=== PATIENT | male | born 1945 | race Caucasian/White ===

== ENCOUNTER 2023-08-07 19:50 | Inpatient (IN) | payer MEDICARE ==
[~2023-08-07] VITALS: Ht 175.3 cm; Wt 94.8 kg
[2023-08-07 20:43] LABS: BASOPHILS ABSOLUTE AUTO 0.06 K/mm3 (0.00-0.23); BASOPHILS PERCENT AUTO 1 % (0-2); EOSINOPHILS ABSOLUTE AUTO 0.46 K/mm3 (0.00-0.68); EOSINOPHILS PERCENT AUTO 5 % (0-6); Hematocrit 45.1 % (37.0-53.0); Hemoglobin 15.7 g/dL (13.5-17.5); IMMATURE GRAN ABSOLUTE AUTO 0.04 K/mm3 (0.00-0.10); IMMATURE GRAN PERCENT AUTO 0 % (0-1); LYMPHOCYTES PERCENT AUTO 17 % (21-46); MONOCYTES ABSOLUTE AUTO 0.65 K/mm3 (0.16-1.47); MONOCYTES PERCENT AUTO 7 % (4-13); Mean Corpuscular HGB 30.3 pg (26.0-34.0); Mean Corpuscular HGB Conc 34.8 g/dL (31.5-36.5); Mean Corpuscular Volume 87 fL (80-100); NEUTROPHILS ABSOLUTE AUTO 6.25 K/mm3 (1.96-9.15); NEUTROPHILS PERCENT AUTO 70 % (41-73); RDW Coefficient Variation 12.6 % (11.7-14.2); RDW Standard Deviation 39.8 fL (35.1-46.3); Red Blood Cell Count 5.19 M/mm3 (4.30-5.90); White Blood Cell Count 8.96 K/mm3 (4.00-11.30)
[2023-08-07 20:46] LABS: Platelet Count 235 K/mm3 (150-400)
[2023-08-07 21:03] LABS: Albumin, Blood 3.8 g/dL (3.4-5.0); Albumin/Globulin Ratio 1.1 (0.8-1.8); Bilirubin, Total 1.4 mg/dL (0.1-1.0); Bun/Creatinine Ratio 17.4 (12.0-20.0); Calcium, Blood 8.9 mg/dL (8.5-10.1); Creatinine, Blood 1.38 mg/dL (0.60-1.20); Globulin, Blood 3.6 g/dL (2.2-4.0); Potassium, Blood 4.7 mmol/L (3.5-5.5); Total Protein, Blood 7.4 g/dL (6.4-8.2)
[2023-08-08] VITALS (13 sets, daily range): BP systolic 134–185; BP diastolic 63–90
[2023-08-08 02:19] LABS: Anti-Xa UFH, PHA Monitoring <0.10 IU/mL; International Normalized Ratio 1.06; Prothrombin Time Results 11.1 Sec (9.7-11.5)
[2023-08-08 05:13] LABS: BASOPHILS ABSOLUTE AUTO 0.07 K/mm3 (0.00-0.23); BASOPHILS PERCENT AUTO 1 % (0-2); EOSINOPHILS ABSOLUTE AUTO 0.68 K/mm3 (0.00-0.68); EOSINOPHILS PERCENT AUTO 9 % (0-6); Hematocrit 43.5 % (37.0-53.0); IMMATURE GRAN ABSOLUTE AUTO 0.05 K/mm3 (0.00-0.10); IMMATURE GRAN PERCENT AUTO 1 % (0-1); LYMPHOCYTES ABSOLUTE AUTO 1.94 K/mm3 (0.84-5.20); LYMPHOCYTES PERCENT AUTO 25 % (21-46); MONOCYTES PERCENT AUTO 9 % (4-13); Mean Corpuscular HGB 30.2 pg (26.0-34.0); Mean Corpuscular HGB Conc 34.5 g/dL (31.5-36.5); Mean Corpuscular Volume 88 fL (80-100); NEUTROPHILS ABSOLUTE AUTO 4.23 K/mm3 (1.96-9.15); NEUTROPHILS PERCENT AUTO 55 % (41-73); Platelet Count 207 K/mm3 (150-400); RDW Coefficient Variation 12.9 % (11.7-14.2); RDW Standard Deviation 41.2 fL (35.1-46.3); Red Blood Cell Count 4.96 M/mm3 (4.30-5.90); White Blood Cell Count 7.67 K/mm3 (4.00-11.30)
[2023-08-08 05:16] LABS: Albumin, Blood 3.6 g/dL (3.4-5.0); Bilirubin, Total 1.4 mg/dL (0.1-1.0); Bun/Creatinine Ratio 17.2 (12.0-20.0); Creatinine, Blood 1.28 mg/dL (0.60-1.20); Globulin, Blood 3.5 g/dL (2.2-4.0); Potassium, Blood 4.1 mmol/L (3.5-5.5); Total Protein, Blood 7.1 g/dL (6.4-8.2)
--- NOTE | 2023-08-08 07:40 | NUR ---
DR MORRISSEY AT BEDSIDE TO EVMIREYA PT. NO CHANGES TO ORDERS AT THIS TIME. GIVE PRN HYDRALAZINE FOR SBP > 160 NEEDED. NO BETA ELIZABETH AT THIS TIME R/T BRADYCARDIA.
--- NOTE | 2023-08-08 07:58 | NUR ---
Echocardiogram completed.
--- NOTE | 2023-08-08 09:45 | NUR ---
REPORT RECEIVED FROM ABHINAV Gilmore RN. ASSUMED CARE OF THIS PT AT APPROX 0700.
--- NOTE | 2023-08-08 10:42 | NUR ---
DR IRENE AT BEDSIDE FOR CONSULTATION OF THIS PT. CONSENT FOR ANGIOGRAM HAS BEEN SIGNED. PROVIDER STS THE PT WILL NOT BE ABLE TO GO TO [employer] FOR PROCEDURE UNTIL INPATIENT BED IS AVAILABLE FOR RECOVERY. LAKHWINDER Carrera, [employer], HAS BEEN MADE AWARE BY THIS RN.
--- NOTE | 2023-08-08 12:05 | NUR ---
REPORT GIVEN TO KEYONA Bray RN TO ASSUME CARE. PT TRANSFERRED TO PCU-02 BY THIS RN AT APPROX 1200.
--- NOTE | 2023-08-08 15:22 | NUR ---
ADMIT TO PCU AT 1201. PATIENT ALERT AND ORIENTED X4. PATIENT STATES HE IS NERVOUS AND CAN BE FORGETFUL AT TIMES. STATES HE HAS BEEN TOLD IN THE PAST HE HAS "DEMENTIA". MOVING ALL EXTREMITIES EQUALLY. SBA TO BATHROOM TO HELP MANAGE CORDS. BILATERAL HYDROCHLORIC AREA [employer]. DENIES USING WALKER OR CANE AT BASELINE. TELE SHOWING SB WITH HR 40-60'S. BP ELEVATED ON ADMIT WITH SBP 170'S. COMPLAINS OF 6/10 MID STERNAL CHEST PAIN THAT IS NONRADIATING AND DULL IN NATURE. PO NITRO GIVEN X1. SBP 134 POST NITRO ADMINISTRATION. CHEST PAIN REDUCED TO 2/10. HEPARIN GTT INFUSING PER EMAR. STRONG PPP. NO EDEMA NOTED. [address] ANGIO SCHEDULED FOR THIS AFTERNOON. ON ROOM AIR SATING ABOVE 95%. LUNGS SOUNDING CLEAR AND DIM IN BASES. DENIES SOB/COUGH. EVEN AND UNLABORED RESPIRATIONS. DENIES USING OXYGEN OR CPAP/BIPAP AT HOME. BOWEL TONES PRESENT. PATIENT CURRENTLY NPO PENDING ANGIOGRAM. MISSING SOME TOP TEETH. PATIENT STATES HE PREFERS A VEGETARIAN DIET. BOWEL MOVEMENT UPON ADMIT TO PCU. PT REPORTS HISTORY OF PROSTATE CANCER WITH TEMPORARY SUPRAPUBIC CATH APPROX 10 YEARS AGO. NO CATH PRESENT ON ADMIT. PATIENT USING URINAL IN BED. SKIN OVERALL FRAGILE WITH SCATTERED BRUISING/SCABS. PATIENT STATES HE HAS A DOG AT HOME AND GETS OCCASIONAL BRUISES FROM PLAYING. SIG OTHER MALACHI AT BEDSIDE FOR ADMIT. PATIENT EDUCATED ON PCU UNIT, CALL LIGHT AND FALL PREVENTION. 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 THIS RN PLACED CALL TO [facility], WAITING ON HOME MED LIST TO BE FAXED FROM [facility].
[2023-08-08] MEDS ORDERED: HUMALOG KW100 UNIT/1 SC (17:23)
[2023-08-08] MEDS ORDERED: BENAZEPRIL HCL40 M4 PO (17:24)
[2023-08-08] MEDS ORDERED: BASAGLAR K100 UNIT/8 SC (17:24)
[2023-08-08] MEDS ORDERED: ATOR40TA PO (17:25)
[2023-08-08] MEDS ORDERED: SYMBICORT 16010.2 GM INH (17:25)
[2023-08-08] MEDS ORDERED: AMLODIPINE BESY10 MG PO (17:26)
[2023-08-08] MEDS ORDERED: HYDRA50 PO (17:27)
[2023-08-08] MEDS ORDERED: INSULANI SC (17:27)
[2023-08-08] MEDS ORDERED: METFORMIN HCL500 M2 PO (17:28)
[2023-08-08] MEDS ORDERED: FLUTICASONE PRO16 GM INH (17:28)
[2023-08-08] MEDS ORDERED: ATEN50 PO (17:28)
[2023-08-08] MEDS ORDERED: GLIP5ER PO (17:29)
--- NOTE | 2023-08-08 18:20 | NUR ---
PATIENT LEFT TO HEART CENTER AT THIS TIME. HEPARIN PLACED ON STANDBY, PHARMACY NOTIFIED. PATIENT SPOKE WITH SIG OTHER MALACHI PRIOR TO HEART CENTER TRANSPORT.
[2023-08-09] VITALS (49 sets, daily range): BP systolic 112–172; BP diastolic 52–93
[2023-08-09 04:13] LABS: BASOPHILS ABSOLUTE AUTO 0.05 K/mm3 (0.00-0.23); BASOPHILS PERCENT AUTO 0 % (0-2); EOSINOPHILS ABSOLUTE AUTO 0.05 K/mm3 (0.00-0.68); EOSINOPHILS PERCENT AUTO 0 % (0-6); Hematocrit 44.6 % (37.0-53.0); Hemoglobin 15.4 g/dL (13.5-17.5); IMMATURE GRAN ABSOLUTE AUTO 0.04 K/mm3 (0.00-0.10); IMMATURE GRAN PERCENT AUTO 0 % (0-1); LYMPHOCYTES ABSOLUTE AUTO 0.88 K/mm3 (0.84-5.20); LYMPHOCYTES PERCENT AUTO 7 % (21-46); MONOCYTES ABSOLUTE AUTO 0.49 K/mm3 (0.16-1.47); MONOCYTES PERCENT AUTO 4 % (4-13); Mean Corpuscular HGB 30.3 pg (26.0-34.0); Mean Corpuscular HGB Conc 34.5 g/dL (31.5-36.5); Mean Corpuscular Volume 88 fL (80-100); Mean Platelet Volume 11.7 fL (9.1-12.4); NEUTROPHILS ABSOLUTE AUTO 10.51 K/mm3 (1.96-9.15); NEUTROPHILS PERCENT AUTO 88 % (41-73); Platelet Count 234 K/mm3 (150-400); RDW Coefficient Variation 13.1 % (11.7-14.2); Red Blood Cell Count 5.08 M/mm3 (4.30-5.90); White Blood Cell Count 12.02 K/mm3 (4.00-11.30)
[2023-08-09 04:57] LABS: Bun/Creatinine Ratio 16.2 (12.0-20.0); Calcium, Blood 8.6 mg/dL (8.5-10.1); Creatinine, Blood 1.36 mg/dL (0.60-1.20); Potassium, Blood 4.3 mmol/L (3.5-5.5)
[2023-08-09 05:11] LABS: HEMOGLOBIN A1C 7.3 % (4.8-5.6)
--- NOTE | 2023-08-09 07:45 | NUR ---
DR. IRENE HERE TO SEE PATIENT. UPDATED ON PATIENT STATUS. INFORMED THAT PATIENT ON NICARDIPINE T/O NIGHT. INFORMED THAT SBP 1-TEENS TO 130S THROUGH NIGHT BASED ON DOCUMENTATION BUT IS 160S CURRENTLY. PATIENT STATES THAT HE NORMALLY RUNS 160S SYSTOLICALLY AT HOME. UPDATED ON GROIN AND RADIAL SITES. DR. IRENE ORDERED FOR TWO MORE PO MEDS FOR BP AND FOR ACTIVITY AD WOJCIECH.
--- NOTE | 2023-08-09 08:00 | NUR ---
INITIAL ASSESSMENT PATIENT ALERT AND ORIENTED X 4 THIS AM. PATIENT STATES THAT HE HAS BEEN DIAGNOSED WITH DEMENTIA AND THAT HE HAS A HARD TIME WITH MEMORY. PATIENT AFEBRILE. PATIENT DENIES PAIN. PATIENT SATTING 90% AND GREATER ON RA. LUNGS CLEAR THROUGHOUT. PATIENT IS COUGHING UP SMALL AMOUNT OF BLOODY SPUTUM THIS AM. PATIENT STATES THAT HE HAS A CHRONIC COUGH AND SPUTUM PRODUTION BUT THAT IT IS NORMALLY NOT BLOODY. PATIENT IN SR WITH BBB AND PVCS, HR IN THE 80S. SBP 130S TO 160S. PATIENT ON NICARDIPINE DRIP AT 2.5 MG/ HOUR. PATIENT STATES HE NORMALLY RUNS 160S AT HOME SYSTOLICALLY. GI AND WNL. SCATTERED BRUISES AND SCABS NOTED. TEGADERM APPLIED TO R RADIAL SITE. SMALL HEMATOMA AND BRUISE NOTED ABOVE INSERTION SITE. NO BLEEDING NOTED. NIGHT RN STATED THAT HEMATOMA HAS REMAINED UNCHANGED. R GROIN SITE SOFT TO PALPATION; NO BLEEDING, BRUISING, OR HEMATOMA NOTED. BED LOW, CALL LIGHT IN REACH. CARE CONTINUES.
--- NOTE | 2023-08-09 12:40 | NUR ---
PATIENT AFEBRILE. PATIENT REMAINS ALERT AND ORIENTED X 4. PATIENT DENIES PAIN. HR 70S TO 80S. SBP 1-TEENS TO 120S. BLOOD SUGAR 317; COVERAGE ADMINISTERED. NO OTHER ACUTE CHANGES TO NOTE ON AT THIS TIME. CARE CONTINUES.
[2023-08-09] MEDS ORDERED: OMEP20ER PO (15:44)
[2023-08-09] MEDS ORDERED: SYMBICORT 160-4.6 GM INH (15:44)
--- NOTE | 2023-08-09 15:50 | NUR ---
SHIFT SUMMARY PATIENT REMAINED ALERT AND ORIENTED X 4. PATIENT REMAINED CALM AND COOPERATIVE. PATIENT HAD NO COMPLAINTS OF PAIN THIS SHIFT. PATIENT REMAINED AFEBRILE. HR RANGED FROM 60S TO 80S. SBP 1-TEENS TO 160S. NICARDIPINE STOPPED THIS AM AND 2 NEW BP MEDS ADDED TO EMAR THIS AM. GI AND REMAIN WNL. NO CHANGES TO SKIN. R GROIN AND R RADIAL SITES REMAIN UNCHANGED EXCEPT FOR SLIGHT IMPROVEMENT/ DECREASE IN R RADIAL HEMATOMA ABOVE INSERTION SITE. IV SALINE LOCKED. PATIENT HAD COMPLETE BED BATH THIS SHIFT. BLOOD SUGARS 227 AND 317 THIS SHIFT; COVERAGE ADMINISTERED AFTER EACH CHECK. PATIENT S.O. HERE TO SEE HIM A COUPLE TIMES THIS SHIFT. NO COMPLAINTS AT THIS TIME. PATIENT WILL BE TRANSFERRING TO MEDICAL FLOOR SHORTLY.
--- NOTE | 2023-08-09 16:30 | NUR ---
PATIENT SUCCESSFULLY TRANSFERRED TO MEDICAL FLOOR, ROOM 305. ALL BELONGINGS SENT WITH PATIENT.
--- NOTE | 2023-08-09 19:41 | NUR ---
SUMMARY- PT TOLERATING FOOD AND FLUID. NO CHEST PAIN. R RADIAL SITE WITH OCCLUSIVE DRESSING SM BRUISING, NO SS OF BLEEDING. R GROIN WITH OCC DRESSING NO SS OF BLEEDING. VSS, 96% ROOM AIR. LUNGS CLEAR. REPORTED TO NOC RN
--- NOTE | 2023-08-09 19:44 | NUR ---
PT TRANSFERRED TO ROOM 305 FROM ICU 16. ORIENTED TO ROOM SET UP AND CALL LIGHT. S/P STENT PLACEMENT, 2 SITES APPEAR NORMAL WITH NO BLEEDING R RAD AND R GROIN. VSS, 96% ROOM AIR. DENIES CHEST PAIN.
[2023-08-10 04:21] VITALS: BP 136/69
[2023-08-10 05:10] LABS: BASOPHILS ABSOLUTE AUTO 0.07 K/mm3 (0.00-0.23); BASOPHILS PERCENT AUTO 1 % (0-2); EOSINOPHILS PERCENT AUTO 6 % (0-6); Hemoglobin 14.5 g/dL (13.5-17.5); IMMATURE GRAN ABSOLUTE AUTO 0.03 K/mm3 (0.00-0.10); IMMATURE GRAN PERCENT AUTO 0 % (0-1); LYMPHOCYTES ABSOLUTE AUTO 1.91 K/mm3 (0.84-5.20); LYMPHOCYTES PERCENT AUTO 18 % (21-46); MONOCYTES ABSOLUTE AUTO 0.87 K/mm3 (0.16-1.47); MONOCYTES PERCENT AUTO 8 % (4-13); Mean Corpuscular HGB 30.5 pg (26.0-34.0); Mean Corpuscular HGB Conc 34.5 g/dL (31.5-36.5); Mean Corpuscular Volume 88 fL (80-100); Mean Platelet Volume 12.3 fL (9.1-12.4); NEUTROPHILS ABSOLUTE AUTO 7.14 K/mm3 (1.96-9.15); NEUTROPHILS PERCENT AUTO 67 % (41-73); Platelet Count 182 K/mm3 (150-400); RDW Standard Deviation 42.4 fL (35.1-46.3); Red Blood Cell Count 4.75 M/mm3 (4.30-5.90); White Blood Cell Count 10.62 K/mm3 (4.00-11.30)
[2023-08-10 05:48] LABS: Bun/Creatinine Ratio 20.7 (12.0-20.0); Calcium, Blood 8.8 mg/dL (8.5-10.1); Creatinine, Blood 1.5 mg/dL (0.60-1.20)
[2023-08-10 07:47] VITALS: BP 132/72
[2023-08-10 12:23] VITALS: BP 140/77
[2023-08-10] MEDS ORDERED: PANT40 PO (13:18)
[2023-08-10] MEDS ORDERED: ASPI81CH PO (13:19)
[2023-08-10] MEDS ORDERED: CARV6.25 PO (13:19)
[2023-08-10] MEDS ORDERED: CLOP75 PO (13:19)
[2023-08-10] MEDS ORDERED: NITROGLYCERIN0.4 MG SL (13:20)
[2023-08-10] MEDS ORDERED: SPIR25 PO (13:20)
== END 2023-08-10 14:32 | disposition home or self-care (01) | DRG 322 ==
LOC: ER 19:50 → ERHOLD 08-08 01:31 → ICUE 08-08 01:31 → PCU 08-08 11:56 → ICUE 08-08 20:53 → MEDS 08-09 11:54 → ICUE 08-09 11:55 → MEDS 08-09 16:27 → ENPENDDIS 08-10 13:46 → MEDS 08-10 14:32
PROVIDERS: Emergency Medicine; Internal Medicine; ADMIT Internal Medicine
PROC: 027135Z Dilation of Coronary Artery, Two Arteries with Two Drug-eluting Intraluminal Devices, Percutaneous Approach (ICD-10-PCS; principal; 2023-08-08)
PROC: B2111ZZ Fluoroscopy of Multiple Coronary Arteries using Low Osmolar Contrast (ICD-10-PCS; 2023-08-08)
PROC: 4A023N7 Measurement of Cardiac Sampling and Pressure, Left Heart, Percutaneous Approach (ICD-10-PCS; 2023-08-08)
DX: I21.4 Non-ST elevation (NSTEMI) myocardial infarction (principal); I12.9 Hypertensive chronic kidney disease with stage 1 through stage 4 chronic kidney disease, or unspecified chronic kidney disease; E11.22 Type 2 diabetes mellitus with diabetic chronic kidney disease; N18.31 Chronic kidney disease, stage 3a; J45.909 Unspecified asthma, uncomplicated; E11.65 Type 2 diabetes mellitus with hyperglycemia; I25.10 Atherosclerotic heart disease of native coronary artery without angina pectoris; Z90.49 Acquired absence of other specified parts of digestive tract; Z90.89 Acquired absence of other organs; Z90.5 Acquired absence of kidney; Z87.891 Personal history of nicotine dependence; Z85.46 Personal history of malignant neoplasm of prostate; Z85.528 Personal history of other malignant neoplasm of kidney
CPT/HCPCS: 36415; 71046; 76937; 80048; 80053; 82947; 83036; 83690; 83880; 84484; 85025; 85347; 85520; 85610; 85730; 93005; 93010; 93306; 93454; 96365-59; 96366-59; 96375; 96375-59; 96376-59; 99152; 99153; 99285-25; A9270; C1725; C1769; C1874; C1887; C1894; C9600; C9601; J0360; J1644; J1815; J2250; J2405; J3010; J7030; J7040; J7050; Q9967

== ENCOUNTER 2024-01-30 08:12 | Emergency (ER) | payer MEDICARE ==
[~2024-01-30] VITALS: Ht 175.3 cm; Wt 93.0 kg
[~2024-01-30 08:12] MED LIST: AMLODIPINE BESY10 MG PO; ASPI81CH PO; ATEN50 PO; ATOR40TA PO; BASAGLAR K100 UNIT/8 SC; BENAZEPRIL HCL40 M4 PO; CARV6.25 PO; CLOP75 PO; FLUTICASONE PRO16 GM INH; GLIP5ER PO; HUMALOG KW100 UNIT/1 SC; HYDRA50 PO; INSULANI SC; METFORMIN HCL500 M2 PO; NITROGLYCERIN0.4 MG SL; OMEP20ER PO; PANT40 PO; SPIR25 PO; SYMBICORT 160-4.6 GM INH; SYMBICORT 16010.2 GM INH
[2024-01-30 09:56] LABS: Albumin, Blood 3.8 g/dL (3.4-5.0); Albumin/Globulin Ratio 1.2 (0.8-1.8); Bilirubin, Total 1.6 mg/dL (0.1-1.0); Bun/Creatinine Ratio 18.2 (12.0-20.0); Calcium, Blood 8.5 mg/dL (8.5-10.1); Creatinine, Blood 1.32 mg/dL (0.60-1.20); Globulin, Blood 3.3 g/dL (2.2-4.0); Potassium, Blood 4.9 mmol/L (3.5-5.5); Total Protein, Blood 7.1 g/dL (6.4-8.2)
[2024-01-30 09:58] LABS: BASOPHILS ABSOLUTE AUTO 0.08 K/mm3 (0.00-0.23); BASOPHILS PERCENT AUTO 1 % (0-2); EOSINOPHILS ABSOLUTE AUTO 0.52 K/mm3 (0.00-0.68); EOSINOPHILS PERCENT AUTO 7 % (0-6); Hematocrit 43.2 % (37.0-53.0); Hemoglobin 14.9 g/dL (13.5-17.5); IMMATURE GRAN ABSOLUTE AUTO 0.04 K/mm3 (0.00-0.10); IMMATURE GRAN PERCENT AUTO 1 % (0-1); LYMPHOCYTES ABSOLUTE AUTO 1.54 K/mm3 (0.84-5.20); LYMPHOCYTES PERCENT AUTO 22 % (21-46); MONOCYTES ABSOLUTE AUTO 0.62 K/mm3 (0.16-1.47); MONOCYTES PERCENT AUTO 9 % (4-13); Mean Corpuscular HGB 30.5 pg (26.0-34.0); Mean Corpuscular HGB Conc 34.5 g/dL (31.5-36.5); Mean Corpuscular Volume 88 fL (80-100); NEUTROPHILS ABSOLUTE AUTO 4.19 K/mm3 (1.96-9.15); NEUTROPHILS PERCENT AUTO 60 % (41-73); RDW Coefficient Variation 12.5 % (11.7-14.2); Red Blood Cell Count 4.89 M/mm3 (4.30-5.90); White Blood Cell Count 6.99 K/mm3 (4.00-11.30)
[2024-01-30 10:24] LABS: Platelet Count 222 K/mm3 (150-400)
[2024-01-30] MEDS ORDERED: Meclizine HCl 25 MG Tab PO ONE (10:55)
[2024-01-30 11:00] VITALS: BP 170/93
== END 2024-01-30 11:06 | disposition home or self-care (01) ==
LOC: ER 08:12
PROVIDERS: Emergency Medicine
DX: R42 Dizziness and giddiness (principal); I65.22 Occlusion and stenosis of left carotid artery; Z79.899 Other long term (current) drug therapy; Z79.4 Long term (current) use of insulin; E11.9 Type 2 diabetes mellitus without complications; I10 Essential (primary) hypertension; Z87.891 Personal history of nicotine dependence
CPT/HCPCS: 70496; 70498; 80053; 85025; 93005; 93010; 99284-25; A9270; Q9967